=== PATIENT | female | born 1955 | race Caucasian/White ===

== ENCOUNTER 2019-09-13 19:13 | Emergency (ER) | payer MEDICARE, OTHER ==
[~2019-09-13] VITALS: Ht 160 cm; Wt 83.0 kg
--- OUTSIDE RECORDS SUMMARY | 2019-09-13 19:16 | XMS REPORT | Summary of Care ---
Author Author BahmanLissa Organization Unknown Address Unknown Phone Unavailable Care Team Providers Care Tonger Name Role Phone MARTINA Banerjee, SY Unavailable Unavailable Lissa Ruggiero Unavailable Unavailable ALEJANDRINA N.P., MARY Unavailable Unavailable MARTINA YOU UT, SY BROWN Unavailable Unavailable ALEJANDRINA SENIOR TECHNICAL SUPPORT ENGINEER UT, MARY N Unavailable Unavailable SHEN MARES, SARAH Unavailable Unavailable GRISELDA, CHIDI Unavailable Unavailable Rita YOU, Masood Unavailable Unavailable Unavailable Unavailable Functional Status Name Dates Details Functional status health issues are not documented Status: Name Dates Details Cognitive status health issues are not documented Status: Problems Name Dates Details Alopecia (704.00, L65.9) Status: Active Vitamin B12 deficiency (266.2, E53.8) Status: Active Allergic rhinitis (477.9, J30.9) Status: Active Occult blood in stools (792.1, R19.5) Status: Active Hand pain (729.5, M79.643) Status: Active Infected insect bite (919.5, W57.XXXA) Status: Active Rectal bleeding (569.3, K62.5) Status: Active Allergic reaction to insect sting (989.5, T63.481A) Status: Active Bilateral low back pain without sciatica (724.2, M54.5) Status: Active Bilateral hip pain (719.45, M25.551) Status: Active Persistent cough (786.2, R05) Status: Active Reactive airway disease (493.90, J45.909) Status: Active Taking multiple medications for chronic disease (799.9, R69) Status: Active Dyspnea (786.09, R06.00) Status: Active Left lateral epicondylitis (726.32, M77.12) Status: Active Hypertension, well controlled (401.9, I10) Status: Active Anxiety and depression (300.00, F41.9) Status: Active Motion sickness (994.6, T75.3XXA) Status: Active Bilateral chronic knee pain (719.46, M25.561) Status: Active Right shoulder pain (719.41, M25.511) Status: Active Rotator cuff impingement syndrome of right shoulder (726.10, M75.41) Status: Active Change in stool (792.1, R19.5) Status: Active Impaired fasting glucose (790.21, R73.01) Status: Active On statin therapy (V58.69, Z79.899) Status: Active Screening for diabetes mellitus (V77.1, Z13.1) Status: Active 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, F33.0) Status: Active Other hyperlipidemia (272.4, E78.49) Status: Active Arthralgia (719.40, M25.50) Status: Active Acute myofascial pain (729.1, M79.18) Status: Active Status post cervical spinal fusion (V45.4, Z98.1) Status: Active Conjunctival hemorrhage of right eye (372.72, H11.31) Status: Active Fibromyalgia (729.1, M79.7) Status: Active GERD (gastroesophageal reflux disease) (530.81, K21.9) Status: Active Never smoked cigarettes (V49.89, Z78.9) Status: Active Low serum HDL (272.9, R74.8) Status: Active Fatigue (780.79, R53.83) Status: Active Need for vaccination with 13-polyvalent pneumococcal conjugate vaccine (V03.82, Z23) Status: Active Adult onset hypothyroidism (244.8, E03.8) Status: Active Cervicalgia (723.1, M54.2) Status: Active Overuse syndrome of neck (847.0, S16.1XXA) Status: Active Need for hepatitis C screening test (V73.89, Z11.59) Status: Active 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, 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) Status: Active Shingles (053.9, B02.9) Status: Active Mixed dyslipidemia (272.2, E78.2) Status: Active Statin intolerance (995.27, Z78.9) Status: Active Impingement syndrome of left shoulder (726.2, M75.42) Status: Active Rotator cuff syndrome of left shoulder (726.10, M75.102) Status: Active Left shoulder pain (719.41, M25.512) Status: Active Abnormal antinuclear antibody titer (795.79, R76.0) Status: Active Contact dermatitis due to poison millicent (692.6, L23.7) Status: Active Screening for nephropathy (V81.5, Z13.89) Status: Active Dermatitis due to plants, including poison millicent, sumac, and oak (692.6, L25.5) Status: Active Need for shingles vaccine (V04.89, Z23) Status: Active Essential hypertension (401.9, I10) Status: Active 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, 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) Status: Active SOB (shortness of breath) on exertion (786.05, R06.02) Status: Active Leg pain, anterior (729.5, M79.606) Status: Active Retrosternal chest pain (786.51, R07.2) Status: Active Right upper quadrant abdominal pain (789.01, R10.11) Status: Active Adult onset hypothyroidism (244.8, E03.8) Status: Active Polymyalgia (725, M35.3) Status: Active At risk for coronary artery disease (V49.89, Z91.89) Status: Active Low back pain (724.2, M54.5) Status: Active Standardized adult depression screening tool completed (Z13.31) Status: Active Colon cancer screening (V76.51, Z12.11) Status: Active Encounter to discuss test results (V65.49, Z71.2) Status: Active Depression with anxiety (300.4, F41.8) Status: Active Weight gain (783.1, R63.5) Status: Active Class 2 obesity with body mass index (BMI) of 37.0 to 37.9 in adult, unspecified obesity type, unspecified whether serious comorbidity present (278.00, E66.9) Status: Active Positive LISA (antinuclear antibody) (795.79, R76.8) Status: Active Polyarthralgia (719.49, M25.50) Status: Active Postcholecystectomy diarrhea (564.4, R19.7) Status: Active Chest pain (786.50, R07.9) Status: Active Chronic pain (338.29, G89.29) Status: Active 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, 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) Status: Active Postprandial diarrhea (787.91, K52.9) Status: Active Influenza vaccination declined by patient (V64.06, Z28.21) Status: Active Mammogram declined (V64.2, Z53.20) Status: Active Pneumococcal vaccination declined by patient (V64.06, Z28.21) Status: Active Body weight measurement declined (V64.2, Z53.20) Status: Active Medications Name Dates Details Levothyroxine Sodium 50 MCG Oral Tablet TAKE 1 TABLET BY MOUTH DAILY DIRECTED Quantity: 30 JANICE MACK M.D.NDA * Start : 12-Jul-2016 Active Omeprazole 20 MG Oral Tablet Delayed Release * Refills: 0 Active Escitalopram Oxalate 5 MG Oral Tablet take 10 mg QD * Refills: 0 JANICE MACK M.D.NDA * Start : 07-May-2018 Active Shingrix 50 MCG/0.5ML Intramuscular Suspension Reconstituted ADMINISTER 0.5 ML INTRAMUSCULARLY ONCE NOW, THEN SECOND DOSE AT 2-6 MONTHS. * Quantity: 1 Refills: 1 MARY TINOCO N.P. * Start : 05-Jul-2019 Active Vitamin D3 10 MCG (400 UNIT) Oral Capsule take 2 tab. at QAM * Refills: 0 Active Colestipol HCl - 1 GM Oral Tablet TAKE 1 TABLET DAILY IN THE MORNING * Quantity: 30 Refills: 6 JANICE MACK M.D.NDA * Start : 13-Aug-2019 Active Glycopyrrolate 1 MG Oral Tablet TAKE 1 TABLET BY MOUTH EVERY MORNING * Quantity: 30 Refills: 6 MARTINA Humphreys.Chepe, SY * Start : 13-Aug-2019 Active Vitamin B12 TABS * Refills: 0 Active Gabapentin 100 MG Oral Capsule TAKE 1 TO 2 CAPSULES BY MOUTH THREE TIMES A DAY * Quantity: 180 Refills: 2 MARTINA M.Chepe, SY * Start : 03-Sep-2019 Active Allergies and Adverse Reactions Name Dates Details CLINT Inhibitors (Allergy) Status: Active Angiotensin Receptor Blockers (Allergy) Status: Active Codeine Derivatives (Allergy) Status: Active Darvon CAPS (Allergy) Status: Active LaMICtal TABS (Allergy) Status: Active Wellbutrin TABS (Allergy) Status: Active Past Medical History Name Dates Details History of abdominal pain (V13.89, Z87.898) Status: Resolved History of Cervical myofascial pain syndrome (729.1, M79.1) Status: Resolved History of fatigue (V13.89, Z87.898) Status: Resolved History of hiatal hernia (V12.79, Z87.19) Status: Resolved History of hyperlipidemia (V12.29, Z86.39) Status: Resolved History of hypothyroidism (V12.29, Z86.39) Status: Resolved History of Nephrolithiasis (V13.01) Status: Resolved History of Osteoarthritis (V13.4) Status: Resolved History of tinnitus (V12.49, Z86.69) Status: Resolved History of Visit for screening mammogram (V76.12, Z12.31) Status: Resolved History of Vitamin D insufficiency (268.9, E55.9) Status: Resolved Procedures Procedure Dates Details [N] 2D Echo complete, with Doppler 52574 Date: 27-Aug-2019 [N] Nuclear Test-Adenosine Stress Perfusion Date: 27-Aug-2019 History of Complete Colonoscopy Completed History of Cholecystectomy Completed History of Tubal Ligation Completed History of Appendectomy Completed History of Foot Surgery Completed History of Nose Surgery Completed History of Hysterectomy Completed Immunization Name Dates Details Td on: 1995 Tdap on: Nov-2016 Prevnar 13 Intramuscular Suspension Lot #: [id number] on: 23-Aug-2018 Family History Name Dates Details Family history of Coronary Artery Disease (V17.49) Status: Active Family history of Stroke Syndrome (V17.1) Status: Active Name Dates Details Family history of systemic lupus erythematosus (V19.4, Z82.69) Status: Active Name Dates Details Family history of Hypertension (V17.49) Status: Active Family history of Congestive Heart Failure Status: Active Family history of Diabetes Mellitus (V18.0) Status: Active Family history of arthritis (V17.7, Z82.61) Status: Active Family history of malignant neoplasm (V16.9, Z80.9) Status: Active Name Dates Details Family history of Coronary Artery Disease (V17.49) Status: Active Family history of Stroke Syndrome (V17.1) Status: Active Name Dates Details Family history of Diabetes Mellitus (V18.0) Status: Active Family history of goiter (V18.19, Z83.49) Status: Active Name Dates Details Family history of Diabetes Mellitus (V18.0) Status: Active Social History Name Dates Details - Status: Name Dates Details Never smoker Never smoker Vital Signs Date Test Result Details :31 BP Systolic 119 mm[Hg] Status: Comments: Location: LUE; Position: Sitting BP Diastolic 79 mm[Hg] Status: Comments: Location: LUE; Position: Sitting Height 62 in Status: Temperature 96.4 f Status: Comments: Method: Temporal Heart Rate 73 /min Status: Comments: Location: L Radial; Respiration Rate 16 /min Status: Comments: Quality: Normal :51 BP Systolic 110 mm[Hg] Status: Comments: Location: LUE; Position: Sitting BP Diastolic 71 mm[Hg] Status: Comments: Location: LUE; Position: Sitting Height 62 in Status: Heart Rate 97 /min Status: Weight 206 lb Status: Body Mass Index Calculated 37.68 kg/m2 Status: Body Surface Area Calculated 1.94 m2 Status: :15 BP Systolic 120 mm[Hg] Status: Comments: Location: LUE; Position: Sitting BP Diastolic 76 mm[Hg] Status: Comments: Location: LUE; Position: Sitting Height 62 in Status: Temperature 96.4 f Status: Comments: Method: Temporal Heart Rate 78 /min Status: Comments: Location: L Radial; Respiration Rate 16 /min Status: Comments: Quality: Normal Weight 205.2 lb Status: Body Mass Index Calculated 37.53 kg/m2 Status: Body Surface Area Calculated 1.93 m2 Status: Physical Findings 6 Status: Comments: PHQ-9 Adult Depression Screening Physical Findings 0 Status: Comments: Pain Scale Results Date Description Value Details :36 [[facility]] LIPID PANEL CHOLESTEROL, TOTAL 219 mg/dl (Above high threshold) Range: <200 HDL CHOLESTEROL 39 mg/dl (Below low threshold) Range: >50 TRIGLYCERIDES 384 mg/dl (Above high threshold) Range: <150 Comments: If a non-fasting specimen was collected, considerrepeat triglyceride testing on a fasting specimenif clinically indicated. Christy et al. J. of Clin. Lipidol. 2015;9:129-169. LDL-CHOLESTEROL 125 {MG/DL__CAL} (Above high threshold) Comments: Reference range: <100 Desirable range <100 mg/dL for primary prevention; <70 mg/dL for patients with CHD or diabetic patients with > or=2 CHD risk factors. LDL-C is now calculated using the Kayleigh calculation, which is a validated novel method providing better accuracy than the Friedewald equation in the estimation of LDL-C. Ace SS et al. KHUSHBU. 2013;310(19): 9765-8408 (http:/ /VipVenta.BView/faq/BBZ102) CHOL/HDLC RATIO 5.6 {CALC} (Above high threshold) Range: <5.0 NON HDL CHOLESTEROL 180 {MG/DL__CAL} (Above high threshold) Range: <130 Comments: For patients with diabetes plus 1 major ASCVD risk factor, treating to a non-HDL-C goal of <100 mg/dL (LDL-C of <70 mg/dL) is considered a therapeutic option. 05-Aug-20198:36 [[facility]] CMP W/EGFR GLUCOSE 97 mg/dl (Normal) Range: 65-99 Comments: Fasting reference interval UREA NITROGEN (BUN) 8 mg/dl (Normal) Range: 7-25 CREATININE 0.71 mg/dl (Normal) Range: 0.50-0.99 Comments: For patients >49 years of age, the reference limitfor Creatinine is approximately 13% higher for peopleidentified as -Gabonese. eGFR NON- 89 {ML/MIN/1.7} (Normal) Range: > OR=60 eGFR 103 {ML/MIN/1.7} (Normal) Range: > OR=60 BUN/CREATININE RATIO NOT APPLICABLE {CALC} Range: 6-22 SODIUM 141 mmol/L (Normal) Range: 135-146 POTASSIUM 4.3 mmol/L (Normal) Range: 3.5-5.3 CHLORIDE 108 mmol/L (Normal) Range: 98-110 CARBON DIOXIDE 24 mmol/L (Normal) Range: 20-32 CALCIUM 9.5 mg/dl (Normal) Range: 8.6-10.4 PROTEIN, TOTAL 6.3 g/dl (Normal) Range: 6.1-8.1 ALBUMIN 3.6 g/dl (Normal) Range: 3.6-5.1 GLOBULIN 2.7 {G/DL__CALC} (Normal) Range: 1.9-3.7 ALBUMIN/GLOBULIN RATIO 1.3 {CALC} (Normal) Range: 1.0-2.5 BILIRUBIN, TOTAL 0.6 mg/dl (Normal) Range: 0.2-1.2 ALKALINE PHSPHATASE 81 u/l (Normal) Range: 33-130 AST 27 u/l (Normal) Range: 10-35 ALT 23 u/l (Normal) Range: 6-29 :36 [[facility]] URINALYSIS, COMPLETE COLOR YELLOW (Normal) Range: YELLOW APPEARANCE CLEAR (Normal) Range: CLEAR SPECIFIC GRAVITY 1.017 (Normal) Range: 1.001-1.035 PH < OR=5.0 (Normal) Range: 5.0-8.0 GLUCOSE NEGATIVE (Normal) Range: NEGATIVE BILIRUBIN NEGATIVE (Normal) Range: NEGATIVE KETONES NEGATIVE (Normal) Range: NEGATIVE OCCULT BLOOD NEGATIVE (Normal) Range: NEGATIVE PROTEIN NEGATIVE (Normal) Range: NEGATIVE NITRITE NEGATIVE (Normal) Range: NEGATIVE LEUKOCYTE ESTERASE NEGATIVE (Normal) Range: NEGATIVE WBC 0-5 {/HPF} (Normal) Range: < OR=5 RBC NONE SEEN {/HPF} (Normal) Range: < OR=2 SQUAMOUS EPITHELIAL CELLS 10-20 {/HPF} (Abnormal) Range: < OR=5 BACTERIA NONE SEEN {/HPF} (Normal) Range: NONE SEEN HYALINE CAST NONE SEEN {/LPF} (Normal) Range: NONE SEEN :36 [[facility]] HEPATITIS C ANTIBODY HEPATITIS C ANTIBODY NON-REACTIVE (Normal) Range: NON-REACTIVE SIGNAL TO CUT-OFF 0.01 (Normal) Range: <1.00 Comments: HCV antibody was non-reactive. There is no laboratory evidence of HCV infection. In most cases, no further action is required. However,if recent HCV exposure is suspected, a test for HCV RNA(test code 84431) is suggested. For additional information please refer tohttp://VipVenta.Authenticlick/faq/ROD77o0(This link is being provided for informational/educational purposes only.) :36 [[facility]] VITAMIN B12 VITAMIN B12 358 pg/ml (Normal) Range: 200-1100 Comments: Please Note: Although the reference range for [id number] is 200-1100 pg/mL, it has been reported that between5 and 10% of patients with values between 200 and 400pg/mL may experience neuropsychiatric and hematologicabnormalities due to occult B12 deficiency; less than 1%of patients with values above 400 pg/mL will have symptoms. 05-Aug-20198:36 [[facility]] TSH, 3RD GENERATION W/REFLEX TO FT4 TSH, 3RD GENERATION W/REFLEX TO FT4 5.34 {MIU/L} (Above high threshold) Range: 0.40-4.50 05-Aug-20198:36 [[facility]] T4, FREE Comments: REPORT COMMENT:FASTING:YES T4, FREE 1.1 ng/dl (Normal) Range: 0.8-1.8 Plan of Care Name Dates Details Planned Observations Planned Goals not documented Planned Encounters Rheumatology Referral Appointment; [facility] On: 12-Sep-2019 14:00 Appointment; [facility] On: 01-Oct-2019 8:15 Appointment; MASOOD VILLATORO M.D. On: 01-Oct-2019 12:40 Appointment; SY MACK M.D. On: 04-Oct-2019 10:00 Appointment; JAYLYN GONZALEZ M.D. On: 21-Oct-2019 8:00 Instructions Name Dates Details Instructions not documented Encounters Appointment; SY MACK M.D. Encounter Diagnosis: Problem not documented On: 02-Apr-2018 14:45 Appointment; SY MACK M.D. Encounter Diagnosis: Problem not documented On: 07-May-2018 14:15 Appointment; SY MACK M.D. Encounter Diagnosis: Problem not documented On: 14-May-2018 10:00 Appointment; ADAM MCCAIN M.D. Encounter Diagnosis: Problem not documented On: 17-May-2018 10:15 Appointment; JADE STOVER M.D. Encounter Diagnosis: Problem not documented On: 10-Jul-2018 9:00 Appointment; SY MACK M.D. Encounter Diagnosis: Problem not documented On: 02-Aug-2018 13:15 Appointment; SY MACK M.D. Encounter Diagnosis: Problem not documented On: 23-Aug-2018 15:15 Appointment; JADE STOVER M.D. Encounter Diagnosis: Problem not documented On: 09-Oct-2018 9:00 Appointment; SY MACK M.D. Encounter Diagnosis: Problem not documented On: 15-Nov-2018 9:30 Appointment; CHIDI LACY M.D. Encounter Diagnosis: Problem not documented On: 13-Dec-2018 10:30 Appointment; SAURAV STEPHESN M.D. Encounter Diagnosis: Problem not documented On: 13-Dec-2018 14:45 Appointment; SY MACK M.D. Encounter Diagnosis: Problem not documented On: 07-Feb-2019 15:15 Appointment; MARY TINOCO NP Encounter Diagnosis: Problem not documented On: 05-Jul-2019 8:15 Appointment; SY MACK M.D. Encounter Diagnosis: Problem not documented On: 13-Aug-2019 13:15 Appointment; MASOOD VILLATORO M.D. Encounter Diagnosis: Problem not documented On: 27-Aug-2019 14:00 Appointment; SY MACK M.D. Encounter Diagnosis: Problem not documented On: 03-Sep-2019 11:00
[2019-09-13] MEDS ORDERED: ONDANSETRON HCL INJ 2MG/ML 2ML 2 MG/ML VIAL IV STA (19:29)
[2019-09-13] MEDS ORDERED: KETOROLAC TROMETHAMINE 30 MG/ML VIAL IV STA (19:29)
[2019-09-13 20:03] LABS: BASOPHILS # (AUTO) 0.1 (0.0-0.1); BASOPHILS % 0.6 % (0.0-1.0); EOSINOPHILS # (AUTO) 0.2 (0.0-0.4); EOSINOPHILS % 2.4 % (0.0-6.0); HEMATOCRIT 43.6 % (34.2-44.1); HEMOGLOBIN 14.3 g/dL (12.0-16.0); LYMPHOCYTES # (AUTO) 2.3 (1.0-3.2); LYMPHOCYTES % 23.9 % (18.0-39.1); MEAN CORPUSCULAR HEMOGLOBIN 30.4 pg (28-32); MEAN CORPUSCULAR HGB CONC 32.8 g/dL (31-35); MEAN CORPUSCULAR VOLUME 92.8 fL (81-99); MONOCYTES # (AUTO) 0.9 (0.2-0.8); MONOCYTES % 9.2 % (4.4-11.3); NEUTROPHILS # (AUTO) 6.1 (2.1-6.9); NEUTROPHILS % 63.5 % (38.7-80.0); PLATELET COUNT 230 x10e3/uL (140-360); RED CELL DISTRIBUTION WIDTH 13.2 % (11.7-14.4)
--- NOTE | 2019-09-13 20:16 | Diagnostic Imaging Report ---
CT Abdomen and Pelvis without contrast INDICATION: Right flank pain for 2 weeks, ^STONE PROTOCOL ^Y TECHNIQUE: Thin collimation axial images obtained from the diaphragm to the level of the pubic symphysis without nonionic intravenous contrast. Dose reduction techniques used: Automated exposure control, adjustment of the mAs and/or kVp according to patient size, standardized low-dose protocol, and/or iterative reconstruction technique. RADIATION DOSE: Total DLP: 740.78 mGy*cm Estimated effective dose: (DLP x 0.015 x size factor) mSv CTDIvol has been reviewed. It is below the limits set by the Radiation Protocol Committee (RPC). COMPARISON: None. ABDOMEN FINDINGS: Lung Bases: Clear. Small hiatal hernia Liver: Normal in attenuation. A low attenuating lesion abutting the intrahepatic IVC measures 9 mm and may represent a cyst.. Gallbladder: Absent. No ductal dilatation. Pancreas: Normal attenuation without mass. Spleen: Normal size without mass. Adrenal Glands: No evidence for mass. Kidneys: Right: Diffuse cortical scarring and patulousness of the renal pelvis. No intrarenal calculus or perinephric inflammation. No cortical mass Left: No renal calculus. No cortical mass or hydronephrosis. No perinephric inflammation Lymph Nodes: No enlarged abdominal or periaortic lymph nodes. Aorta: Normal in diameter. PELVIS FINDINGS: Bowel: Stomach: Normal. Small Bowel: Normal in caliber with normal wall thickness. Large Bowel: Diverticulosis coli. No associated inflammation. Appendix: Not visualized and may be absent or collapsed. Bladder: Underdistended but otherwise normal. Ureters: A pixel-sized calcification in the anterior wall of the proximal right ureter (series 3, image 75) may represent a nonobstructing calculus. There is no periureteric inflammation. Remainder of the ureter is normal. The left ureter is normal in diameter throughout its course without calculus. Peritoneum/retroperitoneum: No free fluid or fluid collection.. Bones: Degenerative changes of the lower lumbar spine. No compression deformities. No focal osseous lesions. Soft tissues: Unremarkable IMPRESSION: 1. Pixel-sized calcification the proximal right ureter without evidence of obstructive uropathy. Right renal cortical scarring. No intrarenal calculi. Normal left kidney. 2. Cholecystectomy and hysterectomy. 3. Diverticulosis coli. No evidence for bowel obstruction or inflammation. 4. Low attenuating hepatic lesion, likely a cyst. 5. Small hiatal hernia. Signed by: Dr. Darinel De MD on 09/13/2019 8:13 PM
[2019-09-13 20:22] LABS: BILIRUBIN,URINE NEGATIVE (NEGATIVE); CLARITY,URINE CLEAR (CLEAR); COLOR,URINE YELLOW (YELLOW); KETONES,URINE NEGATIVE (NEGATIVE); LEUKOCYTE ESTERASE ,URINE NEGATIVE (NEGATIVE); NITRITE,URINE NEGATIVE (NEGATIVE); PROTEIN,URINE DIPSTICK NEGATIVE (NEGATIVE); URINE UROBILINOGEN 0.2 mg/dL (0.2 - 1)
[2019-09-13 20:27] LABS: ALANINE AMINOTRANSFERASE 13 IU/L (0-55); ALBUMIN 3.6 g/dL (3.5-5.0); ALBUMIN/GLOBULIN RATIO 0.9 (0.8-2.0); ALKALINE PHOSPHATASE 94 IU/L (40-150); AMYLASE 48 U/L (25-125); ANION GAP 14.9 mmol/L (8-16); BLOOD UREA NITROGEN 11 mg/dL (7-26); BUN/CREATININE RATIO 13 (6-25); CALCIUM 10.4 mg/dL (8.4-10.2); CARBON DIOXIDE 24 mmol/L (22-29); CHLORIDE 104 mmol/L (98-107); CREATININE, SERUM 0.85 mg/dL (0.57-1.11); EST GLOMERULAR FILTRATION RATE > 60 ML/MIN (60-); GLUCOSE 96 mg/dL (74-118); LIPASE 49 U/L (8-78); POTASSIUM 3.9 mmol/L (3.5-5.1); SODIUM 139 mmol/L (136-145)
[2019-09-13 20:35] LABS: EPITHELIAL CELLS,URINE RARE /LPF; RBC,URINE 0-5 /HPF (0-5); RENAL EPITHELIAL CELLS,URINE RARE
== END 2019-09-13 21:07 | disposition home or self-care (01) ==
LOC: ER 19:13
DX: R10.31 Right lower quadrant pain (principal); R11.2 Nausea with vomiting, unspecified; N20.1 Calculus of ureter; M79.7 Fibromyalgia; E03.9 Hypothyroidism, unspecified
CPT/HCPCS: 36415; 74176; 80053; 81001; 82150; 83690; 85025; 99284; J1885; J2405